=== PATIENT | male | born 2000 | race Caucasian/White ===

== ENCOUNTER 2018-10-13 12:06 | Emergency (ER) | payer MEDICAID ==
[~2018-10-13] VITALS: Ht 188 cm; Wt 76.2 kg
[2018-10-13 12:21] VITALS: BP 133/93; Ht 188 cm; Wt 76.2 kg
== END 2018-10-13 14:15 | disposition home or self-care (01) ==
LOC: ED 12:06
DX: M25.531 Pain in right wrist (principal)